=== PATIENT | male | born 1960 | race Caucasian/White ===

== ENCOUNTER 2017-12-16 06:26 | Inpatient (IN) | payer BC ==
[2017-12-16] MEDS: LACTATED RINGER'S 1,000 ML IV (06:59)
[2017-12-16] MEDS ORDERED: ROCURONIUM 50 MG INJ ×2 (07:00→07:33)
[2017-12-16] MEDS ORDERED: MIDAZOLAM 1 MG/ML 2 ML INJ (07:33)
[2017-12-16] MEDS ORDERED: PROPOFOL 20 ML (07:33)
[2017-12-16] MEDS ORDERED: SUCCINYLCHOLINE CHLORIDE 100 MG/5 ML SYG IV (07:33)
[2017-12-16] MEDS ORDERED: FENTAnyl 50 MCG/ML VIAL (07:33)
[2017-12-16] MEDS ORDERED: LIDOCAINE 1% (MDV) 20 ML INJ (07:40)
[2017-12-16] MEDS ORDERED: DEXAMETHASONE 4 MG/ML 1 ML INJ ×2 (08:06→13:20)
[2017-12-16] MEDS ORDERED: CEFAZOLIN 1 GM INJ ×3 (08:06→13:43)
[2017-12-16] MEDS: BUPIVACAINE 0.25%/EPI (SDV) 30 ML INJ (08:50)
[2017-12-16] MEDS ORDERED: DIPHENHYDRAMINE 50 MG INJ IV (09:00)
[2017-12-16] MEDS ORDERED: MEPERIDINE 25 MG INJ IV (09:00)
[2017-12-16] MEDS ORDERED: ONDANSETRON 4 MG INJ IV ×2 (09:00→14:00)
[2017-12-16] MEDS ORDERED: METOCLOPRAMIDE 10 MG INJ IV (09:00)
[2017-12-16] MEDS: GELATIN SIZE 100 SPONGE (09:10)
[2017-12-16] MEDS: THROMBIN 5000 UNIT VIAL (09:10)
[2017-12-16] MEDS: POLYMYXIN/BACITRACIN 1L IRRIG (09:11)
[2017-12-16] MEDS: HEMOSTATIC MATRIX SYG ZFS (09:11)
[2017-12-16] MEDS ORDERED: ONDANSETRON 4 MG INJ (13:21)
[2017-12-16] MEDS ORDERED: NALOXONE (0.4 MG/ML) INJ IV (14:00)
[2017-12-16] MEDS ORDERED: HYDROCODONE/APAP (5/325) TAB PO (14:00)
[2017-12-16] MEDS ORDERED: NACL 0.9% 3 ML SYG IV (14:00)
[2017-12-16] MEDS ORDERED: PROCHLORPERAZINE 10 MG TAB PO (14:00)
[2017-12-16] MEDS ORDERED: ACETAMINOPHEN 325 MG TAB PO (14:00)
[2017-12-16] MEDS: HYDROmorphONE 1 MG/5 ML IV SYRINGE IV ×4 (14:22→15:02)
[2017-12-16] MEDS: HYDROmorphONE 0.2 MG/ML PCA IV (14:43)
[2017-12-16] MEDS: LIDOCAINE 5% PATCH TD (14:47)
[2017-12-16] MEDS ORDERED: HYDROmorphONE 0.5 MG/0.5 ML SYG IV (18:30)
[2017-12-16] MEDS: CEFAZOLIN 1 GM/50 ML (PMX) 50 ML IVPB (18:31)
[2017-12-17] MEDS: LACTATED RINGER'S 1,000 ML IV (00:02)
[2017-12-17] MEDS: CEFAZOLIN 1 GM/50 ML (PMX) 50 ML IVPB ×3 (00:12→12:56)
[2017-12-17 05:41] LABS: HEMOGLOBIN 12.2 g/dl (14.0-18.0)
[2017-12-17 06:18] LABS: ANION GAP 11 (8-16); BLOOD UREA NITROGEN 18 mg/dl (7-20); CALCIUM 8.7 mg/dl (8.4-10.2); CARBON DIOXIDE 27 mmol/L (21-31); CHLORIDE 104 mmol/L (97-110); CREATININE 0.79 mg/dl (0.61-1.24); GLUCOSE 132 mg/dl (70-220); POTASSIUM 4.3 mmol/L (3.5-5.1); SODIUM 138 mmol/L (135-144)
[2017-12-17] MEDS: DEXAMETHASONE 10 MG/ML 1 ML INJ IV (14:11)
[2017-12-17] MEDS: HYDROCODONE/APAP (5/325) TAB PO ×3 (14:21→22:30)
[2017-12-18] MEDS: HYDROCODONE/APAP (5/325) TAB PO ×4 (03:18→17:58)
[2017-12-18] MEDS: LACTATED RINGER'S 1,000 ML IV (04:50)
[2017-12-18] MEDS: DEXAMETHASONE 10 MG/ML 1 ML INJ IV (12:56)
== END 2017-12-19 12:45 | disposition home or self-care (01) | DRG 473 ==
LOC: REC 06:26 → MS1 15:50
PROC: 0RG20K0 Fusion of 2 or more Cervical Vertebral Joints with Nonautologous Tissue Substitute, Anterior Approach, Anterior Column, Open Approach (ICD-10-PCS; principal; 2017-12-16 07:29)
PROC: 0RT30ZZ Resection of Cervical Vertebral Disc, Open Approach (ICD-10-PCS; 2017-12-16 07:29)
DX: M50.022 Cervical disc disorder at C5-C6 level with myelopathy (principal); M48.02 Spinal stenosis, cervical region; E66.9 Obesity, unspecified; Z68.31 Body mass index [BMI] 31.0-31.9, adult
CPT/HCPCS: 72050; 72156; 80048; 85014; 85018; 86850; 86900; 86901; 88304; 93005; 97110; 97116; 97163; 97530